=== PATIENT | male | born 1980 | race Caucasian/White ===

== ENCOUNTER 2016-10-28 13:10 | Emergency (ER) | payer BC, OTHER ==
[~2016-10-28] VITALS: Ht 182.9 cm; Wt 74.8 kg
[2016-10-28] MEDS ORDERED: NORCO, ANEXSIA 5/325MG TABLET (HYDROcodone/ACETAMINOPHEN) PO ONE (14:30)
--- NOTE | 2016-10-28 14:58 | REP ---
LEFT SHOULDER, THREE VIEWS: HISTORY: Trauma. COMPARISON: 02/19/2016. There is no acute fracture or dislocation. The joint spaces are normal in appearance. IMPRESSION: There is no acute fracture or dislocation. Signed by Carmelo Ho MD 10/28/2016 02:59 P
[2016-10-28 15:09] VITALS: BP 149/81
[2016-10-28] MEDS ORDERED: NAPR500T PO (15:11)
== END 2016-10-28 15:30 | disposition home or self-care (01) ==
LOC: M ED 15:23
DX: S43.422A Sprain of left rotator cuff capsule, initial encounter (principal); X50.0XXA Overexertion from strenuous movement or load, initial encounter; Y92.89 Other specified places as the place of occurrence of the external cause; Y93.89 Activity, other specified; Y99.0 Civilian activity done for income or pay

== ENCOUNTER 2017-04-23 08:02 | Inpatient (IN) | payer BC ==
[~2017-04-23] VITALS: Ht 184.2 cm; Wt 75.1 kg
[~2017-04-23 08:02] MED LIST: NAPR500T PO
[2017-04-23] MEDS ORDERED: insulin pump (08:15)
[2017-04-23] MEDS ORDERED: LORazepam 2 MG/ML VIAL (J2060) IV STA (08:51)
[2017-04-23] MEDS ORDERED: PANTOPRAZOLE 40MG INJ (PROTONIX) (C9113) IV SCH (09:00)
[2017-04-23] MEDS ORDERED: ONDANSETRON 4MG/2ML VIAL (J2405) IV ONE (09:00)
[2017-04-23 09:40] LABS: BASO % 0.2 % (0.0-1.0); EOS # 0.1 K/mm3 (0.0-0.50); EOS % 0.5 % (0.0-3.0); LARGE UNSTAINED CELL # 0.1 K/mm3 (0.0-0.4); LARGE UNSTAINED CELL % 0.9 % (0.0-4.0); LYMPH # 0.9 K/mm3 (1.5-4.5); LYMPH % 6.4 % (24.0-44.0); MEAN CORPUSCULAR HEMOGLOBIN 32.9 pg (27.0-33.0); MEAN CORPUSCULAR HGB CONC 34.7 g/dl (32.0-36.5); MEAN CORPUSCULAR VOLUME 94.8 fl (80.0-96.0); MONO # 0.6 K/mm3 (0.0-0.8); MONO % 3.8 % (0.0-5.0); NEUTROPHILS % 88.2 % (36.0-66.0); PLATELET COUNT, AUTOMATED 371 k/mm3 (150-450); RED CELL DISTRIBUTION WIDTH 11.6 % (11.5-14.5); WHITE BLOOD COUNT 14.7 K/mm3 (4.0-10.0)
[2017-04-23 09:53] LABS: ALBUMIN 4.3 GM/DL (3.2-5.2); ALBUMIN/GLOBULIN RATIO 1.43 (1.00-1.93); ALKALINE PHOSPHATASE 74 U/L (45-117); ALT/SGPT 27 U/L (12-78); ANION GAP 17 MEQ/L (8-16); AST/SGOT 12 U/L (15-37); BILIRUBIN,DIRECT 0.4 MG/DL (0.0-0.2); BILIRUBIN,TOTAL 1.2 MG/DL (0.2-1.0); BLOOD UREA NITROGEN 17 MG/DL (7-18); CALCIUM LEVEL 9.4 MG/DL (8.5-10.1); CARBON DIOXIDE LEVEL 21 MEQ/L (21-32); CHLORIDE LEVEL 95 MEQ/L (98-107); CREATININE FOR GFR 1.29 MG/DL (0.70-1.30); GLOMERULAR FILTRATION RATE > 60.0 (>60); SODIUM LEVEL 133 MEQ/L (136-145); TOTAL PROTEIN 7.3 GM/DL (6.4-8.2)
[2017-04-23 10:00] LABS: GLUCOSE, FASTING 437 MG/DL (70-105); POTASSIUM SERUM 5.3 MEQ/L (3.5-5.1)
[2017-04-23] MEDS ORDERED: ASPIRIN 81 MG CHEW TABLET PO ONE (10:00)
[2017-04-23 10:11] LABS: VENOUS BASE EXCESS -6.8 (-2.0-2.0); VENOUS O2 SATURATION 92.2 % (60.0-80.0); VENOUS PARTIAL PRESSURE CO2 39.7 mmHg (38.0-50.0); VENOUS PARTIAL PRESSURE O2 65.4 mmHg (30.0-50.0); VENOUS STANDARD HCO3 18.9 MEQ/L; VENOUS TOTAL CO2 20.3 MEQ/L (24.0-28.0)
[2017-04-23] MEDS ORDERED: PROMETHAZINE INJ 25 MG/ML VIAL (J2550) IM ONE (10:15)
[2017-04-23] MEDS ORDERED: INSULIN HUMAN REGULAR 100 UNITS in NS 99 ML IV SCH (10:45)
[2017-04-23] MEDS ORDERED: NS 1,000 ML IV ONE (10:45)
[2017-04-23] MEDS ORDERED: INSULIN IV RATE CHANGE DOCUMENTATION ML/HR XX SCH ×3 (10:45→17:30)
[2017-04-23] MEDS ORDERED: INSUH10VL SC (11:00)
--- NOTE | 2017-04-23 11:03 | REP ---
CHEST, SINGLE VIEW: There is no evidence of acute infiltrate. No pleural effusion is seen. The heart is normal in size. The mediastinal silhouette is unremarkable. The visualized osseous structures are intact. IMPRESSION: No acute pulmonary disease. Signed by Jani Mcginnis MD 04/23/2017 07:30 P
--- NOTE | 2017-04-23 13:10 | REP ---
CT ABDOMEN AND PELVIS WITHOUT IV CONTRAST: CT abdomen and pelvis performed without oral or IV contrast. Sagittal and coronal reconstruction images are performed. The visualized lung bases appear clear. The liver, spleen, adrenals, pancreas and kidneys are grossly unremarkable. No renal or ureteral calculus is seen and there is no hydroureteronephrosis. There is no abdominal aortic aneurysm. No adenopathy is seen. There is no free air or free fluid. No gross bowel wall thickening is seen. There is no evidence of appendicitis. No pelvic mass is seen. IMPRESSION: Grossly unremarkable noncontrast CT abdomen and pelvis as discussed above. Signed by Jani Mcginnis MD 04/23/2017 07:37 P
[2017-04-23 13:27] LABS: ANION GAP 16 MEQ/L (8-16); BLOOD UREA NITROGEN 24 MG/DL (7-18); CARBON DIOXIDE LEVEL 21 MEQ/L (21-32); CHLORIDE LEVEL 95 MEQ/L (98-107); CREATININE FOR GFR 1.41 MG/DL (0.70-1.30); GLOMERULAR FILTRATION RATE > 60.0 (>60); MAGNESIUM LEVEL 1.9 MG/DL (1.8-2.4); PHOSPHORUS LEVEL 2.3 MG/DL (2.5-4.9); POTASSIUM SERUM 4.9 MEQ/L (3.5-5.1); SODIUM LEVEL 132 MEQ/L (136-145)
[2017-04-23] MEDS: NS 1,000 ML IV SCH ×2 (13:59→22:34)
[2017-04-23 14:05] LABS: GLUCOSE, FASTING 435 MG/DL (70-105)
--- NOTE | 2017-04-23 14:36 | HPE ---
DATE OF ADMISSION: 04/23/2017 PRIMARY CARE PROVIDER: None. GENERAL MACHINE OPERATOR: Dr. Maday Méndez CHIEF COMPLAINT: Abdominal pain. HISTORY OF PRESENT ILLNESS: The patient is a 37-year-old man who has been type 1 diabetic since age 9, who is on an insulin pump managed by Dr. Maday Méndez, who was in his usual state of his health yesterday, awoke this morning and was on a trip to [place] [employer] when he began to have abdominal discomfort, feeling unwell, as well as chest discomfort. He did have an episode of vomiting and began to feel worse and worse as the morning progressed. He noticed that his fingersticks were trending upward, which prompted him to present to the emergency room. He told me that he had diabetic ketoacidosis, but his last episode was greater than 12 years ago. He told me that he thinks as though his pump is malfunctioning. His contact site has pooling of insulin on his left leg and is handled remotely. He has not received any alarms or warnings otherwise. Subjectively, at the moment the patient tells me that he is feeling slightly better. PAST MEDICAL HISTORY: Type 1 diabetes since age 9, on an insulin pump. HOME MEDICATIONS: - insulin pump ALLERGIES: NEOMYCIN, NICKEL. PAST SURGICAL HISTORY: Back surgery. SOCIAL HISTORY: He is an active smoker. Denies alcohol or illicit drug use. He is currently working. His accompanied him to the emergency room. FAMILY HISTORY: Noncontributory. REVIEW OF SYSTEMS: Negative other than history of present illness. PHYSICAL EXAMINATION: VITAL SIGNS: Temperature 96.9, pulse 97, respiratory rate 22, blood pressure 135/72, oxygen saturation 100% on room air. GENERAL: He is a pleasant, fatigued-appearing, man, slim, lying flat on the stretcher. He does not appear to be in acute distress. He speaks in complete sentences without accessory muscle use. HEENT: Cranial nerves II through XII are grossly intact. He has very dry mucous membranes. No elevation in central venous pressure. CARDIOVASCULAR EXAM: S1, S2. He is mildly tachycardic. No additional heart sounds appreciated. RESPIRATORY EXAM: Clear. ABDOMINAL EXAM: Bowel sounds present. The abdomen is soft. It is diffusely tender to palpation. EXTREMITIES: No clubbing, cyanosis or edema. LABORATORY STUDIES: WBC 14.7, hemoglobin 16.3, hematocrit 46.9, platelet count 371. Chemistry panel showed sodium 133, potassium 5.3, chloride 95, bicarbonate 21, BUN 17, anion gap 17, creatinine 1.2, fasting glucose 137, calcium 9.4, total bilirubin 1.2, AST 12, ALT 27. One set of cardiac enzymes are negative. Lipase is unremarkable. Venous blood gas reveals a pH of 7.3, PCO2 of 39, and PO2 of 65.4. IMAGING: The patient had a chest x-ray, which revealed no acute pulmonary disease. He also had a CT scan of the abdomen and pelvis, which revealed grossly unremarkable noncontrast CT of the abdomen and pelvis. ASSESSMENT AND PLAN: This is a 37-year-old man with diabetic ketoacidosis, possibly secondary to medication nonadherence. 1. DKA, possibly secondary to medication nonadherence due to a malfunctioning pump. At this time, I have told him to turn the pump off and that he will need to remove the current contact. He has been started on an insulin drip in the emergency room and admitted to the medical intensive care unit (ICU). Continue with treatment for DKA as per usual protocol. Monitor his BMP. Check a phosphorous and magnesium level. Monitor his potassium. We will keep him on the insulin drip until his gap is closed and then could consider bridging him and restarting his home pump with new site. We will check a beta hydroxybutyrate and we will also check microbiology, UA, urine culture, blood cultures. We will trend his cardiac enzymes. His EKG is unremarkable. We will continue to follow this patient closely.
[2017-04-23 14:57] LABS: ANION GAP 10 MEQ/L (8-16); BLOOD UREA NITROGEN 23 MG/DL (7-18); CALCIUM LEVEL 8.5 MG/DL (8.5-10.1); CARBON DIOXIDE LEVEL 23 MEQ/L (21-32); CHLORIDE LEVEL 104 MEQ/L (98-107); CREATININE FOR GFR 1.19 MG/DL (0.70-1.30); GLOMERULAR FILTRATION RATE > 60.0 (>60); GLUCOSE, FASTING 287 MG/DL (70-105); SODIUM LEVEL 137 MEQ/L (136-145)
[2017-04-23 16:03] VITALS: BP 130/60
[2017-04-23 16:39] LABS: ANION GAP 6 MEQ/L (8-16); BLOOD UREA NITROGEN 19 MG/DL (7-18); CALCIUM LEVEL 8.6 MG/DL (8.5-10.1); CARBON DIOXIDE LEVEL 26 MEQ/L (21-32); CHLORIDE LEVEL 107 MEQ/L (98-107); CREATININE FOR GFR 1.08 MG/DL (0.70-1.30); GLOMERULAR FILTRATION RATE > 60.0 (>60); GLUCOSE, FASTING 189 MG/DL (70-105); POTASSIUM SERUM 3.9 MEQ/L (3.5-5.1); SODIUM LEVEL 139 MEQ/L (136-145)
[2017-04-23 18:59] LABS: ANION GAP 7 MEQ/L (8-16); BLOOD UREA NITROGEN 18 MG/DL (7-18); CALCIUM LEVEL 8.5 MG/DL (8.5-10.1); CARBON DIOXIDE LEVEL 26 MEQ/L (21-32); CHLORIDE LEVEL 108 MEQ/L (98-107); CREATININE FOR GFR 0.97 MG/DL (0.70-1.30); GLOMERULAR FILTRATION RATE > 60.0 (>60); GLUCOSE, FASTING 99 MG/DL (70-105); POTASSIUM SERUM 3.8 MEQ/L (3.5-5.1); SODIUM LEVEL 141 MEQ/L (136-145)
[2017-04-23 20:00] VITALS: BP 123/60
[2017-04-23] MEDS ORDERED: ENOXAPARIN 40 MG/0.4 ML SYRINGE (J1650) SC SCH (21:00)
[2017-04-23] MEDS ORDERED: HumaLOG INSULIN (NovoLOG) PER UNIT SC PRN (21:45)
[2017-04-23 22:30] LABS: METHADONE URINE NEGATIVE (NEGATIVE)
[2017-04-24] VITALS: BP 120/58
[2017-04-24 04:00] VITALS: BP 117/56
[2017-04-24 04:59] LABS: MEAN CORPUSCULAR HEMOGLOBIN 32.6 pg (27.0-33.0); MEAN CORPUSCULAR HGB CONC 34.9 g/dl (32.0-36.5); MEAN CORPUSCULAR VOLUME 93.6 fl (80.0-96.0); RED CELL DISTRIBUTION WIDTH 11.7 % (11.5-14.5); WHITE BLOOD COUNT 14.6 K/mm3 (4.0-10.0)
[2017-04-24 05:15] LABS: ALKALINE PHOSPHATASE 57 U/L (45-117); ALT/SGPT 21 U/L (12-78); ANION GAP 12 MEQ/L (8-16); AST/SGOT 15 U/L (15-37); BILIRUBIN,TOTAL 1.3 MG/DL (0.2-1.0); BLOOD UREA NITROGEN 15 MG/DL (7-18); CALCIUM LEVEL 8.3 MG/DL (8.5-10.1); CARBON DIOXIDE LEVEL 23 MEQ/L (21-32); CHLORIDE LEVEL 103 MEQ/L (98-107); GLOMERULAR FILTRATION RATE > 60.0 (>60); GLUCOSE, FASTING 227 MG/DL (70-105); POTASSIUM SERUM 4.4 MEQ/L (3.5-5.1); SODIUM LEVEL 138 MEQ/L (136-145)
--- NOTE | 2017-04-24 05:58 | ECGEPIP ---
Stationary ECG Study [facility] - ED Test Date: 2017-04-23 Pat Name: MAGGIE LOMAX Department: Room: - Gender: M Front Office Supervisor: SHENA : 1980 Requested By: Kurtis Childress Order Number: [id number] Reading MD: Kurtis Dejesus Measurements Intervals [place] Rate: 103 P: 72 IA: 138 QRS: 93 QRSD: 97 T: 51 QT: 325 QTc: 426 Interpretive Statements SINUS TACHYCARDIA POSSIBLE RIGHT ATRIAL ENLARGEMENT LEFT ATRIAL ENLARGEMENT BORDERLINE RIGHT AXIS DEVIATION NO PRIORS Electronically Signed On 04-24-2017 5:58:31 EDT by Kurtis Dejesus
[2017-04-24 08:00] VITALS: BP 129/63
[2017-04-24 08:34] LABS: ANION GAP 8 MEQ/L (8-16); BLOOD UREA NITROGEN 13 MG/DL (7-18); CALCIUM LEVEL 7.6 MG/DL (8.5-10.1); CARBON DIOXIDE LEVEL 25 MEQ/L (21-32); CHLORIDE LEVEL 103 MEQ/L (98-107); CREATININE FOR GFR 0.85 MG/DL (0.70-1.30); GLOMERULAR FILTRATION RATE > 60.0 (>60); GLUCOSE, FASTING 267 MG/DL (70-105); POTASSIUM SERUM 4.1 MEQ/L (3.5-5.1); SODIUM LEVEL 136 MEQ/L (136-145)
--- NOTE | 2017-04-24 20:30 | DSES ---
DATE OF ADMISSION: 04/23/2017 DATE OF DISCHARGE: 04/24/2017 DISCHARGE DIAGNOSIS: Diabetic ketoacidosis. SECONDARY DIAGNOSES: 1. Medication nonadherence. 2. Anion gap acidosis. 3. Acute kidney injury. 4. Hypoglycemia. 5. Hyponatremia. HOSPITAL COURSE: The patient is a 37-year-old man who is a known type 1 diabetic since the age of 9, on an insulin pump, followed by Dr. Maday Méndez, who began to feel unwell on the morning of the with nausea, vomiting, abdominal pain. He presented to the emergency room and was found to be in DKA, was admitted to the intensive care unit (ICU) and started on insulin drip. He was treated as per protocol. His symptoms did quickly improve. Lipase within normal limits. Cardiac enzymes were negative. Blood cultures, urine culture, chest x-ray, CT scan of the abdomen and pelvis were all fairly unremarkable. It was felt that his DKA was secondary to malfunctioning pump contact site. His pod was pooling insulin and was not injecting correctly. After his gap had closed, he was bridged to a new pod and the new pod and insulin pump contact site and restarted on his pump. This morning, the patient states that subjectively he is feeling well. He has no nausea, vomiting. No fevers or chills. He feels completely back to normal. OBJECTIVE: VITAL SIGNS: Temperature 98.6, pulse 79, respiratory rate 22, blood pressure 129/63, oxygen saturation 97% on room air. GENERAL: He is a pleasant, middle aged, man lying in bed, accompanied by his . The patient does not appear to be in any acute distress whatsoever. HEENT: Cranial nerves II through XII are grossly intact. He has moist mucous membranes. No elevation in central venous pressure. CARDIOVASCULAR EXAM: S1, S2 regular. RESPIRATORY EXAM: Clear. ABDOMINAL EXAM: Benign. EXTREMITIES: No clubbing, cyanosis or edema. He is slim. LABORATORY STUDIES: WBC 14.6, hemoglobin 14.8, platelet count 317. Chemistry panel: Sodium 136, potassium 4.1, chloride 103, bicarbonate 25, BUN 13, creatinine 0.8, anion gap is 8. Multiple sets of cardiac enzymes are negative. Urine toxicology is negative other than elevated beta hydroxybutyrate. Microbiology is negative. Imaging: Chest x-ray and CT of the abdomen and pelvis were unremarkable. ASSESSMENT AND PLAN: This is a 37-year-old man with resolved diabetic ketoacidosis. 1. Resolved DKA secondary to malfunctioning pump/pod site. At the present time, his DKA is resolved. He is tolerating a diet. He has not returned to DKA. No other secondary cause for DKA has been elucidated. He is at his functional baseline. At this time, he is being discharged home to the care of his . 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 His activity and diet are as prior to admission. He is to return to the emergency room if symptoms worsen. DISCHARGE MEDICATIONS: At the time of discharge: - NovoLog insulin via insulin pump as directed Greater than 30 minutes was spent organizing disposition.
== END 2017-04-24 09:32 | disposition home or self-care (01) | DRG 420 ==
LOC: M ED 08:02 → M ED INP 11:45 → M ICU 15:51
PROVIDERS: ADMIT Internal Medicine; ATTEND Internal Medicine
DX: E10.10 Type 1 diabetes mellitus with ketoacidosis without coma (principal); E87.1 Hypo-osmolality and hyponatremia; Z88.8 Allergy status to other drugs, medicaments and biological substances; Z91.09 Other allergy status, other than to drugs and biological substances; F17.200 Nicotine dependence, unspecified, uncomplicated; Z79.4 Long term (current) use of insulin; Z96.41 Presence of insulin pump (external) (internal)

== ENCOUNTER → 2017-12-29 | Outpatient (REF) | payer OTHER ==
[2017-12-29 16:45] LABS: CREATININE FOR GFR 0.97 MG/DL (0.70-1.30); GLOMERULAR FILTRATION RATE > 60.0 (>60)
[2017-12-29 16:45] LABS: BLOOD UREA NITROGEN 9 MG/DL (7-18)
== END ==
LOC: M LABDRAW1 15:57
DX: M75.42 Impingement syndrome of left shoulder (principal)
CPT/HCPCS: 82565

== ENCOUNTER → 2018-01-04 | Outpatient (CLI) | payer OTHER ==
[~2018-01-04] MED LIST changes: +CONRAY-43 43% 50ML VIAL (Q9960) As Ordered; -NAPR500T PO; +PROHANCE 279.3MG/ML 15ML VIAL (A9576) As Ordered
== END ==
LOC: M RADPRO 06:23
DX: S46.012A Strain of muscle(s) and tendon(s) of the rotator cuff of left shoulder, initial encounter (principal); M25.512 Pain in left shoulder; Z79.899 Other long term (current) drug therapy; Y92.89 Other specified places as the place of occurrence of the external cause; Y93.89 Activity, other specified; Y99.8 Other external cause status; X58.XXXA Exposure to other specified factors, initial encounter
CPT/HCPCS: 23350

== ENCOUNTER 2018-09-01 08:18 | Emergency (ER) | payer OTHER ==
[~2018-09-01] VITALS: Ht 185.4 cm; Wt 74.5 kg
[~2018-09-01 08:18] MED LIST changes: -CONRAY-43 43% 50ML VIAL (Q9960) As Ordered; +INSUH10VL SC; +NAPR-50 PO; -PROHANCE 279.3MG/ML 15ML VIAL (A9576) As Ordered; +insulin pump
[2018-09-01] MEDS ORDERED: ONDANSETRON 4MG/2ML VIAL (J2405) IV ONE (08:45)
[2018-09-01] MEDS ORDERED: NS 1,000 ML IV ONE ×2 (08:45→09:00)
[2018-09-01 08:48] LABS: VENOUS BASE EXCESS -1.6 (-2.0-2.0); VENOUS HCO3 25.5 MEQ/L (23.0-27.0); VENOUS O2 SATURATION 59.2 % (60.0-80.0); VENOUS PARTIAL PRESSURE CO2 51.3 mmHg (38.0-50.0); VENOUS PARTIAL PRESSURE O2 29.6 mmHg (30.0-50.0); VENOUS PH 7.314 UNITS (7.330-7.430); VENOUS TOTAL CO2 27.1 MEQ/L (24.0-28.0)
[2018-09-01 08:58] LABS: BASO # 0.1 10^3/uL (0.0-0.2); BASO % 0.6 % (0.0-1.0); EOS # 0.1 10^3/uL (0.0-0.50); EOS % 0.8 % (0.0-3.0); HEMATOCRIT 47.4 % (42.0-52.0); HEMOGLOBIN 16.7 g/dl (13.5-17.5); LYMPH # 1.3 10^3/uL (1.5-4.5); MEAN CORPUSCULAR HEMOGLOBIN 32.5 pg (27.0-33.0); MEAN CORPUSCULAR HGB CONC 35.2 g/dl (32.0-36.5); MEAN CORPUSCULAR VOLUME 92.2 fl (80.0-96.0); MONO # 0.7 10^3/uL (0.0-0.8); NEUTROPHILS % 83.2 % (36.0-66.0); PLATELET COUNT, AUTOMATED 346 10^3/uL (150-450); RED BLOOD COUNT 5.14 10^6/uL (4.30-6.10); WHITE BLOOD COUNT 13.3 10^3/uL (4.0-10.0)
[2018-09-01 09:20] LABS: ALBUMIN 4.5 GM/DL (3.2-5.2); ALT/SGPT 23 U/L (12-78); BILIRUBIN,DIRECT 0.3 MG/DL (0.0-0.2); BILIRUBIN,TOTAL 0.9 MG/DL (0.2-1.0); BLOOD UREA NITROGEN 11 MG/DL (7-18); CALCIUM LEVEL 9.2 MG/DL (8.5-10.1); CARBON DIOXIDE LEVEL 26 MEQ/L (21-32); CHLORIDE LEVEL 96 MEQ/L (98-107); CREATININE FOR GFR 1.08 MG/DL (0.70-1.30); GLOMERULAR FILTRATION RATE > 60.0 (>60); GLUCOSE, FASTING 433 MG/DL (70-100); SODIUM LEVEL 132 MEQ/L (136-145); TOTAL PROTEIN 7.6 GM/DL (6.4-8.2)
[2018-09-01] MEDS ORDERED: HumuLIN R (REGULAR) INSULIN (NovoLIN R) **100U/ML** PER UNIT IV ONE (09:45)
[2018-09-01] MEDS ORDERED: METOCLOPRAMIDE INJ 10MG/2ML VIAL (J2765) IV ONE (09:45)
[2018-09-01] MEDS: HumaLOG INSULIN (NovoLOG) PER UNIT SC STA ×2 (11:21→12:49)
[2018-09-01] MEDS ORDERED: HUMA100I3 SC (14:29)
[2018-09-01] MEDS ORDERED: INSU1MIS20 SC (14:30)
[2018-09-01] MEDS ORDERED: HumaLOG INSULIN (NovoLOG) PER UNIT SC ONE (14:30)
[2018-09-01 14:35] VITALS: BP 141/64
== END 2018-09-01 14:36 | disposition home or self-care (01) ==
LOC: M ED 08:18
DX: T85.614A Breakdown (mechanical) of insulin pump, initial encounter (principal); Y63.8 Failure in dosage during other surgical and medical care; T38.3X6A Underdosing of insulin and oral hypoglycemic [antidiabetic] drugs, initial encounter; E10.65 Type 1 diabetes mellitus with hyperglycemia; R11.0 Nausea; F17.220 Nicotine dependence, chewing tobacco, uncomplicated; Z88.3 Allergy status to other anti-infective agents
CPT/HCPCS: 80048; 80076; 82803; 85025; 96361; 96374; 96375; 99284; J2405; J2765

== ENCOUNTER → 2019-03-21 | Outpatient (REF) | payer OTHER ==
[~2019-03-21] MED LIST changes: +HUMA100I3 SC; +INSU1MIS20 SC; -NAPR-50 PO; +NAPR-837 PO
[2019-03-21 13:39] LABS: ALBUMIN 3.9 GM/DL (3.2-5.2); ALT/SGPT 26 U/L (12-78); BILIRUBIN,TOTAL 0.7 MG/DL (0.2-1.0); BLOOD UREA NITROGEN 6 MG/DL (7-18); CALCIUM LEVEL 9.3 MG/DL (8.5-10.1); CARBON DIOXIDE LEVEL 31 MEQ/L (21-32); CHLORIDE LEVEL 101 MEQ/L (98-107); CHOLESTEROL LEVEL 127 MG/DL (<200); CHOLESTEROL RISK RATIO 1.924 (<5); CREATININE FOR GFR 0.83 MG/DL (0.70-1.30); GLOMERULAR FILTRATION RATE > 60.0 (>60); GLUCOSE, FASTING 85 MG/DL (70-100); HDL CHOLESTEROL 66 MG/DL (>40); LDL CHOLESTEROL 53 MG/DL (<100); NON-HDL-C 61 MG/DL; POTASSIUM SERUM 4.4 MEQ/L (3.5-5.1); SODIUM LEVEL 138 MEQ/L (136-145); TOTAL PROTEIN 7.1 GM/DL (6.4-8.2); TRIGLYCERIDES LEVEL 41 MG/DL (<150)
== END ==
LOC: M LABDRAW1 08:23
PROVIDERS: ATTEND Internal Medicine Endocrinology, Diabetes & Metabolism
DX: E10.649 Type 1 diabetes mellitus with hypoglycemia without coma (principal)

== ENCOUNTER 2021-07-28 08:21 | Observation (INO) | payer OTHER ==
[~2021-07-28] VITALS: Ht 185.4 cm; Wt 75.0 kg
[2021-07-28] MEDS ORDERED: HUMA100I3 SC (08:36)
[2021-07-28] MEDS ORDERED: NS 1,000 ML IV ONE ×2 (08:45→08:50)
[2021-07-28] MEDS ORDERED: METOCLOPRAMIDE INJ 10MG/2ML VIAL (J2765 PER 1) IV ONE (08:50)
[2021-07-28 09:12] LABS: VENOUS BASE EXCESS -0.2 (-2.0-2.0); VENOUS HCO3 24.2 MEQ/L (23.0-27.0); VENOUS O2 SATURATION 46.4 % (60.0-80.0); VENOUS PARTIAL PRESSURE CO2 39.3 mmHg (38.0-50.0); VENOUS PH 7.408 UNITS (7.330-7.430); VENOUS STANDARD HCO3 22.8 MEQ/L; VENOUS TOTAL CO2 25.4 MEQ/L (24.0-28.0)
[2021-07-28 09:13] LABS: BASO % 0.5 % (0.0-1.0); EOS % 0.2 % (0.0-3.0); HEMATOCRIT 47.1 % (42.0-52.0); HEMOGLOBIN 16.9 g/dl (13.5-17.5); LYMPH # 0.6 10^3/uL (1.5-5.0); LYMPH % 10.7 % (24.0-44.0); MEAN CORPUSCULAR HGB CONC 35.9 g/dl (32.0-36.5); MEAN CORPUSCULAR VOLUME 89.2 fl (80.0-96.0); MONO # 0.8 10^3/uL (0.0-0.8); MONO % 14.7 % (2.0-8.0); NEUTROPHILS # 4.2 10^3/uL (1.5-8.5); NEUTROPHILS % 73.6 % (36.0-66.0); PLATELET COUNT, AUTOMATED 249 10^3/uL (150-450); RED BLOOD COUNT 5.28 10^6/uL (4.30-6.10); WHITE BLOOD COUNT 5.7 10^3/uL (4.0-10.0)
[2021-07-28 09:40] LABS: ALBUMIN 4.2 GM/DL (3.2-5.2); BILIRUBIN,DIRECT 0.2 MG/DL (0.0-0.2); BILIRUBIN,TOTAL 0.4 MG/DL (0.2-1.0); TOTAL PROTEIN 7.8 GM/DL (6.4-8.2)
[2021-07-28 10:10] LABS: RSV AMPLIFICATION NEGATIVE (NEGATIVE)
[2021-07-28] MEDS ORDERED: ONDANSETRON 4MG/2ML VIAL IV ONE (10:10)
[2021-07-28] MEDS ORDERED: PANTOPRAZOLE 40MG VIAL (C9113 PER 1) IV ONE (10:10)
[2021-07-28 10:19] LABS: ACETONE/KETONE 11.57 MG/DL (<2.81)
[2021-07-28] MEDS ORDERED: IBUP-1720 PO (12:36)
[2021-07-28] MEDS ORDERED: INSUHUMDS SQ (12:36)
[2021-07-28] MEDS ORDERED: HOME MED LIST COMPLETE! XX SCH (12:40)
[2021-07-28] MEDS ORDERED: ACETAMINOPHEN TAB 650MG DOSE (2X325MG) PO PRN (12:55)
[2021-07-28] MEDS ORDERED: ONDANSETRON 4MG/2ML VIAL IV PRN (12:55)
[2021-07-28 13:44] LABS: INR 1.12; PROTHROMBIN TIME 14.9 SECONDS (12.7-14.5)
[2021-07-28 13:45] LABS: FIBRINOGEN 291 MG/DL (268-480); PARTIAL THROMBOPLASTIN TIME 32.5 SECONDS (25.9-37.0)
[2021-07-28] MEDS ORDERED: GLUCOSE 4GM CHEW TABLET PO PRN (13:45)
[2021-07-28] MEDS ORDERED: GLUCAGON INJ 1MG VIAL SC PRN (13:45)
[2021-07-28] MEDS ORDERED: DEXTROSE 50% 50 ML SYRINGE IV PRN (13:45)
[2021-07-28 13:53] LABS: D-DIMER QUANT < 270 ng/ml (<500)
[2021-07-28] MEDS: NS 1,000 ML IV SCH (14:01)
[2021-07-28 14:08] LABS: ALBUMIN 3.6 GM/DL (3.2-5.2); ALT/SGPT 21 U/L (12-78); BILIRUBIN,DIRECT 0.1 MG/DL (0.0-0.2); BILIRUBIN,TOTAL 0.2 MG/DL (0.2-1.0); BLOOD UREA NITROGEN 5 MG/DL (7-18); CALCIUM LEVEL 8.4 MG/DL (8.5-10.1); CARBON DIOXIDE LEVEL 27 MEQ/L (21-32); CHLORIDE LEVEL 99 MEQ/L (98-107); CREATININE FOR GFR 0.76 MG/DL (0.70-1.30); FERRITIN 93 NG/ML (26-388); GLOMERULAR FILTRATION RATE > 60.0 (>60); GLUCOSE, FASTING 130 MG/DL (70-100); LDH LACTATE DEHYDROGENASE 111 U/L (87-241); MAGNESIUM LEVEL 1.6 MG/DL (1.8-2.4); NT-PRO BNP 29 PG/ML (<125); SODIUM LEVEL 133 MEQ/L (136-145); TOTAL PROTEIN 6.4 GM/DL (6.4-8.2)
--- NOTE | 2021-07-28 14:44 | HPEPDOC ---
General Date of Admission Jul 28, 2021 at 08:22 Date of Service: Jul 28, 2021 Chief Complaint The patient is a 41-year-old male admitted with a reason for visit of Covid-19, Dehydration. History of Present Illness Mr. Trejo is a 41-year-old male with type 1 diabetes on insulin pump who presents with nausea, dry heaving and poor oral intake. Everyone in his family recently tested positive for Covid on [place] evening. Then about 2 days ago, he started to feel ill. He had nausea with dry heaving multiple times. He has not eaten anything in 2 days due to nausea. Denies any diarrhea or fever. He does have abdominal pain and back pain from dry heaving so frequently. Patient was concerned for DKA and came into the ED for evaluation. While here, he was mildly tachycardic, but otherwise blood pressures been stable. Patient is doing well at room air. Labs does show anion gap metabolic acidosis and his beta hydroxybutyrate is elevated. VBG did not demonstrate acidosis. Glucose was mildly elevated at 178. Patient does not have any leukocytosis. When I saw patient, he was feeling better after the fluid boluses. His nausea comes and goes. He still has abdominal tenderness but he feels like he could try to eat. He says that his abdominal tenderness is from the dry heaving. Otherwise, he cannot remember the last time he had a bowel movement, but is normal for him to go about once a week. Patient will be placed in observation for nausea, vomiting, and anion gap metabolic acidosis in the setting of diabetes mellitus type 1. Home Medications Scheduled PRN Ibuprofen (Ibuprofen) 200 Mg Tablet, 400 MG PO PRN PRN for PAIN LEVEL 1-5, (Reported) Miscellaneous Medications Insulin Human Lispro (Humalog) 100 Unit/1 Ml Vial, 25.35 UNITS SQ, (Reported) 25.35 via insulin pump and bolus ( pt unsure of units) Allergies Coded Allergies: neomycin (Verified Allergy, Unknown, 07/28/21) Past Medical History Medical History 1. Diabetes mellitus type 1 on insulin pump 2. Covid positive on 07/28/2021 Surgical History Denies any surgeries Family History Denies any known medical history in parents Social History * Smoker: former Smoker Alcohol: Denies Drugs: denies A-FIB/CHADSVASC A-FIB History Current/History of A-Fib/PAF?: No Review of Systems Constitutional: Denies: Chills, Fever Eyes: Denies: Vision change ENT: Denies: Sore Throat Skin: Denies: Rash Pulmonary: Denies: Dyspnea, Cough Gastrointestinal: Reports: Nausea, Vomiting, Abdominal Pain; Denies: Diarrhea Genitourinary: Denies: Dysuria Hematologic: Denies: Bruising Musculoskeletal: Reports: Back Pain Neurological: Denies: Numbness Psych: Denies: Anxiety, Depression Physical Examination General Exam: Positive: Alert, Cooperative Eye Exam: Positive: EOMI; Negative: Sclera icteric Neck Exam: Positive: Supple Chest Exam: Positive: Clear to auscultation; Negative: Rales, Rhonchi, Wheezing Heart Exam: Positive: Tachycardic, Regular Rhythm Abdomen Exam: Positive: BS Hyperactive, Tenderness Extremity Exam: Negative: Edema Neuro Exam: Positive: Normal Speech, Cranial Nerves 3-12 NL Psych Exam: Positive: Mental status NL, Anxiety Vital Signs Vital Signs Date Time Temp Pulse Resp B/P (MAP) Pulse Ox O2 Delivery O2 Flow Rate FiO2 07/28/21 13:15 90 20 176/84 (114) 98 07/28/21 11:45 Room Air 07/28/21 08:22 99.5 Laboratory Data Labs 24H Laboratory Tests 2 07/28/21 08:39: Bedside Glucose (Misc Panel) 178H 07/28/21 08:53: Blood Gas Bicarbonate Standard 22.8, Venous Blood pH 7.408, Venous Blood Partial Pressure CO2 39.3, Venous Blood Partial Pressure O2 22.0L, Venous Blood Total Carbon Dioxide 25.4, Venous Blood HCO3 24.2, Venous Blood Oxygen Saturation 46.4L, Venous Blood Base Excess -0.2 07/28/21 08:54: Immature Granulocyte % (Auto) 0.3, Neutrophils (%) (Auto) 73.6H, Lymphocytes (%) (Auto) 10.7L, Monocytes (%) (Auto) 14.7H, Eosinophils (%) (Auto) 0.2, Basophils (%) (Auto) 0.5, Neutrophils # (Auto) 4.2, Lymphocytes # (Auto) 0.6L, Monocytes # (Auto) 0.8, Eosinophils # (Auto) 0.0, Basophils # (Auto) 0.0, Nucleated Red Blood Cells % (auto) 0.0 07/28/21 08:57: Estimated Mean Plasma Glucose 126H, Hemoglobin A1c 6.0, Osmolality 273L, Total Bilirubin 0.4, Direct Bilirubin 0.2, Aspartate Amino Transf (AST/SGOT) 12, Alanine Aminotransferase (ALT/SGPT) 21, Alkaline Phosphatase 87, Total Protein 7.8, Albumin 4.2, Albumin/Globulin Ratio 1.2, Lipase 58L, B-Hydroxybutyrate 11.57H 07/28/21 09:01: POC Glucose (Misc Panel) 178H, POC Sodium (Misc Panel) 129L, POC Potassium (Misc Panel) 4.2, POC Chloride (Misc Panel) 91L, POC Total CO2 (Misc Panel) 24.0, POC Blood Urea Nitrogen (Misc Panel 6L, POC Ionized Calcium (Misc Panel) 4.6, POC Creatinine (Misc Panel) 0.8, POC Hematocrit (Misc Panel) 52.0H 07/28/21 09:15: Coronavirus (COVID-19)(PCR) POSITIVEA, Influenza Type A (RT-PCR) NEGATIVE, Influenza Type B (RT-PCR) NEGATIVE, Respiratory Syncytial Virus (PCR) NEGATIVE 07/28/21 11:46: POC Glucose (Misc Panel) 144H, POC Sodium (Misc Panel) 132L, POC Potassium (Misc Panel) 3.9, POC Chloride (Misc Panel) 96L, POC Total CO2 (Misc Panel) 22.0L, POC Blood Urea Nitrogen (Misc Panel 4L, POC Ionized Calcium (Misc Panel) 4.5, POC Creatinine (Misc Panel) 0.6, POC Hematocrit (Misc Panel) 44.0 07/28/21 13:23: Prothrombin Time 14.9H, Prothromb Time International Ratio 1.12, Activated Partial Thromboplast Time 32.5, Fibrinogen 291, D-Dimer, Quantitative < 270 CBC/BMP Laboratory Tests 07/28/21 08:54 Assessment/Plan Mr. Trjeo is a 41-year-old male with type 1 diabetes on insulin pump who presents with nausea, dry heaving and poor oral intake. Patient's Covid infection may have set off his current symptoms. He is not in DKA, but he does have elevated ketoacidosis with elevated anion gap. He may be on the brink of DKA. Patient tells me that he does feel hungry despite not eating for the past 2 days. Will encourage oral intake and provide supportive care with IVF. We will continue monitoring his labs. Another consideration would be that his viral illness is caused some gastritis. This gastritis can cause nausea and poor oral intake. Will order on Carafate and Protonix to see if this will help with his nausea and appetite. Patient requests to stay on his insulin pump rather than starting sliding scale insulin. Otherwise, if he is able to tolerate his diet and his labs look better tomorrow, can discharge patient. Patient request monoclonal antibodies. Once discharged, will set patient up for monoclonal antibodies. Plan / VTE VTE Prophylaxis Ordered?: Yes Plan Plan 1. Nausea, vomiting, and poor appetite/gastritis Most likely due to Covid infection Added on Carafate and Protonix to help with nausea and appetite We will try oral diet 2. Elevated anion gap with metabolic acidosis in the setting of type 1 diabetes Patient is not in DKA, but may progress to DKA Patient's ketones are elevated We will encourage oral intake Patient request to continue his insulin pump instead of sliding scale insulin Continue carbohydrate consistent diet 3. Dehydration Most likely due to nausea and poor oral intake Continue IVF 4. Covid infection Family tested positive for Covid around [place] Patient symptoms started 2 days ago Patient not hypoxic Supportive care Can consider monoclonal antibodies on discharge 5. DVT prophylaxis Lovenox Disposition: If patient tolerates diet and labs look better tomorrow, can consider discharge. Can consider monoclonal antibodies on discharge. COTY CA DO Jul 28, 2021 14:44
[2021-07-28] MEDS: ASPIRIN 81MG ENTERIC TABLET PO SCH (17:11)
[2021-07-28] MEDS: SUCRALFATE SUSP 1GM/10ML UD PO SCH ×2 (17:30→19:43)
[2021-07-28] MEDS ORDERED: HumaLOG INSULIN (NovoLOG) PER UNIT SC SCH ×2 (17:30→21:00)
[2021-07-28 17:40] VITALS: BP 149/34
[2021-07-28 18:00] VITALS: O2SAT 99
--- NOTE | 2021-07-28 18:40 | ECGEPIP ---
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
[2021-07-28 19:26] VITALS: BP 143/65
[2021-07-29] MEDS: NS 1,000 ML IV SCH (01:45)
[2021-07-29 04:00] VITALS: BP 147/72
[2021-07-29 06:33] LABS: BASO % 0.4 % (0.0-1.0); EOS # 0.2 10^3/uL (0.0-0.5); EOS % 2.5 % (0.0-3.0); HEMOGLOBIN 15.5 g/dl (13.5-17.5); LYMPH # 0.8 10^3/uL (1.5-5.0); LYMPH % 9.3 % (24.0-44.0); MEAN CORPUSCULAR VOLUME 88.8 fl (80.0-96.0); MONO # 0.9 10^3/uL (0.0-0.8); NEUTROPHILS # 6.2 10^3/uL (1.5-8.5); NEUTROPHILS % 76.4 % (36.0-66.0); PLATELET COUNT, AUTOMATED 230 10^3/uL (150-450); RED BLOOD COUNT 4.84 10^6/uL (4.30-6.10); WHITE BLOOD COUNT 8.1 10^3/uL (4.0-10.0)
[2021-07-29 06:59] LABS: BLOOD UREA NITROGEN 5 MG/DL (7-18); CALCIUM LEVEL 8.1 MG/DL (8.5-10.1); CARBON DIOXIDE LEVEL 24 MEQ/L (21-32); CHLORIDE LEVEL 103 MEQ/L (98-107); CREATININE FOR GFR 0.66 MG/DL (0.70-1.30); GLOMERULAR FILTRATION RATE > 60.0 (>60); GLUCOSE, FASTING 155 MG/DL (70-100); MAGNESIUM LEVEL 1.7 MG/DL (1.8-2.4); POTASSIUM SERUM 3.5 MEQ/L (3.5-5.1); SODIUM LEVEL 137 MEQ/L (136-145)
[2021-07-29 08:00] VITALS: O2SAT 96
[2021-07-29] MEDS: SUCRALFATE SUSP 1GM/10ML UD PO SCH ×2 (08:03→11:21)
[2021-07-29] MEDS: ASPIRIN 81MG ENTERIC TABLET PO SCH (08:03)
[2021-07-29] MEDS ORDERED: ENOXAPARIN 40MG/0.4ML SYRINGE (J1650 PER 10MG) SC SCH (09:00)
[2021-07-29] MEDS ORDERED: CEPACOL LOZENGE PO PRN (10:20)
[2021-07-29] MEDS ORDERED: SORE15LO PO (11:01)
[2021-07-29] MEDS ORDERED: FLUT15.820 NARES (11:01)
[2021-07-29] MEDS ORDERED: PANT40TA29 PO (11:02)
[2021-07-29 12:00] VITALS: O2SAT 99
--- NOTE | 2021-07-29 18:37 | DS.PDOC ---
Discharge Summary General Date of Admission Jul 28, 2021 at 08:22 Date of Discharge Jul 29, 2021 Discharge Summary PROCEDURES PERFORMED DURING STAY: None ADMITTING DIAGNOSES: 1. Nausea, vomiting, and poor appetite/gastritis 2. Elevated anion gap with metabolic acidosis in the setting of type 1 diabetes 3. Dehydration 4. Covid infection DISCHARGE DIAGNOSES: 1. Nausea, vomiting, and poor appetite/gastritis 2. Elevated anion gap with metabolic acidosis in the setting of type 1 diabetes 3. Dehydration 4. Covid infection COMPLICATIONS/CHIEF COMPLAINT: Covid-19, Dehydration. HISTORY OF PRESENT ILLNESS: Mr. Trejo is a 41-year-old male with type 1 diabetes on insulin pump who presents with nausea, dry heaving and poor oral intake. Everyone in his family recently tested positive for Covid on evening. Then about 2 days ago, he started to feel ill. He had nausea with dry heaving multiple times. He has not eaten anything in 2 days due to nausea. Denies any diarrhea or fever. He does have abdominal pain and back pain from dry heaving so frequently. Patient was concerned for DKA and came into the ED for evaluation. While here, he was mildly tachycardic, but otherwise blood pressures been stable. Patient is doing well at room air. Labs does show anion gap metabolic acidosis and his beta hydroxybutyrate is elevated. VBG did not demonstrate acidosis. Glucose was mildly elevated at 178. Patient does not have any leukocytosis. When I saw patient, he was feeling better after the fluid boluses. His nausea comes and goes. He still has abdominal tenderness but he feels like he could try to eat. He says that his abdominal tenderness is from the dry heaving. Otherwise, he cannot remember the last time he had a bowel movement, but is normal for him to go about once a week. Patient will be placed in observation for nausea, vomiting, and anion gap metabolic acidosis in the setting of diabetes mellitus type 1. HOSPITAL COURSE: Patient was given fluids, and he did well. Denied any episodes of vomiting and nausea is much improved. He is tolerating a diet. His labs look better. He does report having a runny nose. The rhinorrhea as well likely from his viral respiratory infection. Started patient on fluticasone propionate. Patient tells me that he would have postnasal drip causing sore throat and nausea. Also started patient on benzocaine/menthol lozenges to help with sore throat. Otherwise, he felt ready for home. We discussed monoclonal antibodies, and he was agreeable. DISCHARGE MEDICATIONS: Please see below. ALLERGIES: Please see below. PHYSICAL EXAMINATION ON DISCHARGE: VITAL SIGNS: Please see below. GENERAL: Comfortable, in no apparent distress. HEENT: Head normocephalic/atraumatic, EOMI, sclera clear. NECK: Supple. RESPIRATORY: Lungs clear to auscultation bilaterally, no rales, wheeze or rhonchi. CARDIOVASCULAR: Regular rate and rhythm. ABDOMEN: Soft, nontender, no guarding or rebound tenderness. Normal bowel sounds. MUSCLE SKELETAL: Muscle strength 5/5 in all extremities. NEUROLOGICAL: CN 3-12 grossly intact, no focal deficits noted. PSYCHOLOGICAL: Normal mood and affect LABORATORY DATA: Please see below. IMAGING: None PROGNOSIS: Good ACTIVITY: As tolerated. DIET: Carbohydrate consistent diet DISCHARGE PLAN: We will discharge patient home. Patient is at increased risk for progression of Covid due to his history of diabetes. We discussed monoclonal antibodies and he is agreeable. We will discharge patient and have patient come back for monoclonal antibodies. DISPOSITION: 01 Home, Self-Care. DISCHARGE INSTRUCTIONS: 1. Follow-up with PCP in a week ITEMS TO FOLLOWUP ON ON OUTPATIENT: 1. Oxygenation and respiratory symptoms 2. Regular diabetic care DISCHARGE CONDITION: Stable. Total time spent discharge planning, discharge summary, and medication reconciliation: 25 minutes Vital Signs/I&Os Vital Signs Date Time Temp Pulse Resp B/P (MAP) Pulse Ox O2 Delivery O2 Flow Rate FiO2 07/29/21 12:00 99 Room Air 07/29/21 04:00 99.2 91 18 147/72 (97) I&O- Last 24 Hours up to 6 AM 07/29/21 06:00 Intake Total 4020 ml Output Total 1525 ml Balance 2495 ml Laboratory Data Labs 24H Laboratory Tests 2 07/28/21 19:23: Bedside Glucose (Misc Panel) 160H 07/29/21 06:14: Immature Granulocyte % (Auto) 0.4, Neutrophils (%) (Auto) 76.4H, Lymphocytes (%) (Auto) 9.3L, Monocytes (%) (Auto) 11.0H, Eosinophils (%) (Auto) 2.5, Basophils (%) (Auto) 0.4, Neutrophils # (Auto) 6.2, Lymphocytes # (Auto) 0.8L, Monocytes # (Auto) 0.9H, Eosinophils # (Auto) 0.2, Basophils # (Auto) 0.0, Nucleated Red Blood Cells % (auto) 0.0, Anion Gap 10, Glomerular Filtration Rate > 60.0, Calcium Level 8.1L, Magnesium Level 1.7L 07/29/21 11:24: Bedside Glucose (Misc Panel) 106H CBC/BMP Laboratory Tests 07/29/21 06:14 FSBS Laboratory Tests Test 07/28/21 19:23 07/29/21 11:24 Range/Units Bedside Glucose (Misc Panel) 160 106 70-105 MG/DL Discharge Medications Scheduled Fluticasone Propionate (Fluticasone Propionate) 15.8 Ml [place].susp, 2 SPRAY BARBER ES DAILY Pantoprazole Sodium (Pantoprazole Sodium) 40 Mg Tablet.dr, 40 MG PO QHS Scheduled PRN Benzocaine/Menthol (Sore Throat Lozenge) 1 Each Lozenge, 1 LEANDRO PO Q2HP PRN for SORE THROAT Ibuprofen (Ibuprofen) 200 Mg Tablet, 400 MG PO PRN PRN for PAIN LEVEL 1-5, (Reported) Miscellaneous Medications Insulin Human Lispro (Humalog) 100 Unit/1 Ml Vial, 25.35 UNITS SQ, (Reported) 25.35 via insulin pump and bolus ( pt unsure of units) Allergies Coded Allergies: neomycin (Verified Allergy, Unknown, 07/28/21) COTY CA DO Jul 29, 2021 18:37
[2021-07-29] MEDS ORDERED: PANTOPRAZOLE 40MG TAB (PROTONIX) PO SCH (21:00)
== END 2021-07-29 13:03 | disposition home or self-care (01) ==
LOC: M ED 08:21 → M ED INP 08:22 → ENRESERV 15:44 → M 4MAIN 17:40
PROVIDERS: ADMIT Internal Medicine; ATTEND Internal Medicine
DX: U07.1 COVID-19 (principal); E86.0 Dehydration; R63.0 Anorexia; K29.70 Gastritis, unspecified, without bleeding; E10.9 Type 1 diabetes mellitus without complications; E87.2 Acidosis; R00.0 Tachycardia, unspecified; Z79.899 Other long term (current) drug therapy; Z88.3 Allergy status to other anti-infective agents; Z87.891 Personal history of nicotine dependence
CPT/HCPCS: 36415; 80047; 80048; 80076; 82010; 82728; 82803; 83036; 83615; 83690; 83735; 83880; 83930; 84145; 85025; 85379; 85384; 85610; 85730; 86140; 87631; 93005; 93041; 96361; 96374; 96375; 99285; C9113; J2405; J2765

== ENCOUNTER 2021-07-29 13:45 | Outpatient (CLI) | payer OTHER ==
[~2021-07-29] VITALS: Ht 185.4 cm; Wt 73.5 kg
--- NOTE | 2021-07-29 11:37 | IPNPDOC ---
Subjective Date Seen The patient was seen on 07/29/21. Subjective Chief Complaint/HPI Mr. Trejo is a 41-year-old male with type 1 diabetes on insulin pump who presents with nausea, dry heaving and poor oral intake. Patient's family had been COVID positive the evening prior to . Patient started to feel ill on 07/26/2021. Patient came to the ED on 07/28/2021 and tested positive. He was not hypoxic. He was placed on observation for dehydration. Patient did well today. He has rhinorrhea and sore throat 2/2 PND. Rhinorrhea is contributing to his nausea. Patient will be started on flonase. Otherwise, patient is at risk for progression of COVID illness due to his diabetes mellitus. I discussed monoclonal antibiotics with patient. He is agreeable. Patient will receive monoclonal antibodies today. Past medical history 1. Diabetes mellitus type 1 on insulin pump 2. Covid positive on 07/28/2021 Past surgical history Denies any past surgeries Social history Tobacco use: Patient is a former smoker Alcohol use: Denies Recreational drug use: Denies Family history Patient does not know medical history in parents Constitutional: Reports: Fever Eyes: Denies: Vision change ENT: Reports: Post Nasal Drip, Sore Throat, Other Symptoms (rhinorrhea) Skin: Denies: Rash Pulmonary: Denies: Dyspnea, Cough Cardiovascular: Reports: Chest Pain (Musculoskeletal pain/soreness) Gastrointestinal: Reports: Abdominal Pain (Musculoskeletal pain/soreness); Denies: Nausea Hematologic: Denies: Bruising Neurological: Denies: Numbness Psych: Denies: Anxiety, Depression Objective Physical Examination General Exam: Positive: Alert, Cooperative Eye Exam: Negative: Sclera icteric ENT Exam: Positive: Atraumatic Neck Exam: Positive: Supple Chest Exam: Positive: Clear to auscultation Heart Exam: Positive: Rate Normal, Regular Rhythm Abdomen Exam: Positive: Normal bowel sounds, Soft; Negative: Tenderness Extremity Exam: Negative: Edema Neuro Exam: Positive: Normal Speech, Cranial Nerves 3-12 NL Psych Exam: Positive: Mental status NL, Mood NL Assessment /Plan Plan/VTE VTE Prophylaxis Ordered?: No (outpatient proceedure) Plan 1. COVID infection -Patient is at risk for progression of disease -Patient to receive Bamlanivimab 2. Diabetes mellitus type 1 -Continue with insulin pump Disposition: Patient should follow up with PCP in 1 week. COTY CA DO Jul 29, 2021 11:37
[~2021-07-29 13:45] MED LIST changes: +ACETAMINOPHEN TAB 650MG DOSE (2X325MG) PO PRN; +ALBUTEROL 90 MCG/ACT 8GM HFA INHALER INH PRN; +ALBUTEROL SULFATE 2.5 MG/0.5 ML INH NEB SOLN INH PRN; +EPINEPHrine INJ 1 MG/ML 1ML AMP IM PRN; +FLUT15.820 NARES; +IBUP-1720 PO; +INSUHUMDS SQ; +NS 1,000 ML IV SCH; +PANT40TA29 PO; +SORE15LO PO; +diphenhydrAMINE 50MG/ML VIAL (J1200) IV PRN; +methylPREDNISolone 125MG 2ML VIAL IV PRN
[2021-07-29] MEDS ORDERED: BAMLANIVIMAB 700 MG, ETESEVIMAB 1,400 MG in NS 250 ML IV ONE (14:00)
[2021-07-29 14:01] VITALS: BP 163/69
[2021-07-29 14:31] VITALS: BP 155/74
[2021-07-29 15:01] VITALS: BP 147/79
[2021-07-29 16:02] VITALS: BP 153/77
== END 2021-07-29 16:01 | disposition home or self-care (01) ==
LOC: M OPCLI4PR 13:45
PROVIDERS: ATTEND Internal Medicine
DX: U07.1 COVID-19 (principal); Z88.1 Allergy status to other antibiotic agents

== ENCOUNTER → 2023-01-03 | Outpatient (CLI) | payer OTHER ==
[~2023-01-03] MED LIST changes: -ACETAMINOPHEN TAB 650MG DOSE (2X325MG) PO PRN; -ALBUTEROL 90 MCG/ACT 8GM HFA INHALER INH PRN; -ALBUTEROL SULFATE 2.5 MG/0.5 ML INH NEB SOLN INH PRN; +BENZ1LOZ2 PO; -EPINEPHrine INJ 1 MG/ML 1ML AMP IM PRN; +ISOVUE-300 61% 100ML VIAL ONE; +LIDOCAINE 1% MDV 20ML VIAL ONE; -NS 1,000 ML IV SCH; +PROHANCE 279.3MG/ML 5ML VIAL ONE; -SORE15LO PO; -diphenhydrAMINE 50MG/ML VIAL (J1200) IV PRN; -methylPREDNISolone 125MG 2ML VIAL IV PRN
== END ==
LOC: M PLAIMG 14:02
PROVIDERS: ATTEND Orthopaedic Surgery
DX: M25.551 Pain in right hip (principal)
CPT/HCPCS: 27093; 73723; 76000; A9576; Q9967

== ENCOUNTER 2025-03-12 13:35 | Emergency (ER) | payer OTHER ==
[~2025-03-12] VITALS: Ht 185.4 cm; Wt 77.4 kg
[~2025-03-12 13:35] MED LIST changes: -BENZ1LOZ2 PO; -ISOVUE-300 61% 100ML VIAL ONE; -LIDOCAINE 1% MDV 20ML VIAL ONE; -PROHANCE 279.3MG/ML 5ML VIAL ONE; +SORE15LO PO
[2025-03-12 16:40] VITALS: BP 144/98; TEMP 97.9; O2SAT 100
== END 2025-03-12 16:45 | disposition home or self-care (01) ==
LOC: M ED 13:35
DX: T67.8XXA Other effects of heat and light, initial encounter (principal); E11.9 Type 2 diabetes mellitus without complications; Z88.1 Allergy status to other antibiotic agents; Z79.1 Long term (current) use of non-steroidal anti-inflammatories (NSAID); Z79.4 Long term (current) use of insulin; Z79.899 Other long term (current) drug therapy